=== PATIENT | male | born 1955 | race Caucasian/White ===

== ENCOUNTER 2022-04-30 16:04 | Emergency (ER) | payer MEDICAID ==
[~2022-04-30] VITALS: Ht 172.7 cm; Wt 59.0 kg
[2022-04-30 16:09] VITALS: BP_SYST 173
[2022-04-30] MEDS ORDERED: KETOROLAC TROMETHAMINE 60 MG/2 ML VIAL IM ONE (16:30)
[2022-04-30] MEDS ORDERED: KETOROLAC TROMETHAMINE 30 MG VIAL IVP ONE (16:45)
[2022-04-30] MEDS ORDERED: IBUP-1969 PO (17:32)
[2022-04-30 17:48] VITALS: BP_SYST 137
== END 2022-04-30 17:48 | disposition home or self-care (01) ==
LOC: SED 16:04
DX: R20.2 Paresthesia of skin (principal); M54.6 Pain in thoracic spine; E11.9 Type 2 diabetes mellitus without complications; I10 Essential (primary) hypertension; Z79.899 Other long term (current) drug therapy
CPT/HCPCS: 99284; 96374; 70450; 76376; J1885